=== PATIENT | female | born 1965 | race Caucasian/White ===

== ENCOUNTER 2016-10-27 19:12 | Emergency (ER) | payer OTHER ==
[~2016-10-27] VITALS: Ht 167.6 cm; Wt 76.5 kg
[2016-10-27 19:18] VITALS: Ht 167.6 cm; Wt 76.5 kg
--- NOTE | 2016-10-27 20:29 | RADRPT ---
PROCEDURE: XR Ankle. CLINICAL INDICATION: Left ankle pain. TECHNIQUE: Three views of the left ankle. COMPARISON: None available. FINDINGS: No fracture or dislocation is identified. The ankle mortise appears intact in this nonstressed stud y. The joint spaces are preserved. There is mild soft tissue swelling along the lateral ankle. IMPRESSION: 1. No fracture or dislocation of the left ankle. RPTAT: HTAR .Moreno Isidro MD, MD Date Time Electronically viewed and signed by .Moreno Isidro MD, on 10/27/2016 20:29 .R/
--- NOTE | 2016-10-27 20:30 | RADRPT ---
PROCEDURE: XR Foot. CLINICAL INDICATION: Pain. TECHNIQUE: Three views of the left foot. COMPARISON: None available. FINDINGS: No fracture or dislocation is identified. The joint spaces are preserved. There is mild soft tissu e swelling lateral to the fifth metatarsal head. IMPRESSION: 1. No fracture or dislocation of the left foot. RPTAT: HTAR .Moreno Isidro MD, MD Date Time Electronically viewed and signed by .Moreno Isidro MD, on 10/27/2016 20:30 .R/
[2016-10-27] MEDS ORDERED: IBUP800T25 PO (21:31)
--- NOTE | 2016-10-27 21:36 | ERD ---
ER Documentation Chief Complaint Date/Time DATE: 10/27/16 TIME: 21:33 Chief Complaint sp ground level fall, right ankle pain/ swelling HPI This is a 51-year-old female who slipped on wet floor twisting her right ankle prior to arrival. Should the pain is sharp and worse with movement but she is able to bear weight on her left ankle. No pain in the left knee no head trauma no other signs of injury. Is better with rest no radiation ROS All systems reviewed and are negative except as per history of present illness. Medications Home Meds Active Scripts Ibuprofen* (Motrin*) 800 Mg Tab, 800 MG PO Q6H Y for PAIN AND OR ELEVATED TEMP, #30 TAB Prov:ADY MARIEKEYLARae BlandonElsie DO 10/27/16 Allergies Allergies: Coded Allergies: acetaminophen (Verified Allergy, Unknown, 10/27/16) PMhx/Soc Medical and Surgical Hx: pt denies Medical Hx, pt denies Surgical Hx History of Surgery: No (DENIES MEDICAL AND SURGICAL HX.) Hx Alcohol Use: Yes (SOCIALLY) Hx Substance Use: No Hx Tobacco Use: No Smoking Status: Never smoker FmHx Family History: No coronary disease Physical Exam Vitals Vital Signs Date Time Temp Pulse Resp B/P Pulse Ox O2 Delivery O2 Flow Rate FiO2 10/27/16 19:18 98.2 88 20 148/72 100 Physical Exam Const: Well-developed, well-nourished Head: Atraumatic, normocephalic Eyes: Normal Conjunctiva, PERRLA, EOMI, normal sclera, no nystagmus ENT: Normal External Ears, Nose and Mouth, moist mucus membranes. Neck: Full range of motion. No meningismus, no lymphadenopathy. Resp: Clear to auscultation bilaterally, no wheezing, rhonchi, rales Cardio: Regular rate and rhythm, no murmurs, S1 S2 present Abd: Soft, non tender x 4, non distended. Normal bowel sounds, no guarding or rebound, no pulsitile abdominal masses or bruits Skin: No petechiae or rashes, no ecchymosis , no maculopapular rash Back: No midline or flank tenderness Ext: No cyanosis, or edema, FROM x 4, normal inspection, neurovascularly intact x 4, the left ankle has some tenderness the lateral malleolus but minimal swelling, there is also some tenderness to the left distal metatarsal 4 and 5 Neur: Awake and alert, STR 5/5 x 4, sensation intact x 4, no focal findings, cerebellum intact Psych: Normal Mood and Affect Procedures/MDM X-ray of the left ankle is negative per radiology for fracture X-ray of the left foot negative per radiology for fracture Departure Diagnosis: Primary Impression: Ankle sprain Encounter type: initial encounter Involved ligament of ankle: unspecified ligament Laterality: left Qualified Code: S93.402A - Sprain of left ankle, unspecified ligament, initial encounter Condition: Stable Patient Instructions: Treating Ankle Sprains BERNIE MARIE DO Oct 27, 2016 21:36
== END 2016-10-27 21:47 | disposition home or self-care (01) ==
LOC: FTE 19:12
DX: S93.402A Sprain of unspecified ligament of left ankle, initial encounter (principal); W01.0XXA Fall on same level from slipping, tripping and stumbling without subsequent striking against object, initial encounter; Y92.9 Unspecified place or not applicable
CPT/HCPCS: 73610; 73630; Z7502